=== PATIENT | female | born 1955 | race Caucasian/White ===

== ENCOUNTER 2019-04-21 03:13 | Inpatient (IN) ==
[2019-04-21] MEDS ORDERED: SODIUM CHLORIDE 0.9% 1000ML 1,000 ML IV ONE (03:34)
[2019-04-21] MEDS ORDERED: ALBUT/IPRATROP 3MG/0.5MG NEB 3 ML VIAL NEB STA (03:35)
[2019-04-21] MEDS ORDERED: methylPREDNISolone 125 MG/2 ML VIAL IV STA (03:35)
[2019-04-21 03:59] LABS: Basophils # (auto) 0.02 K/uL (0-0.2); Basophils % (auto) 0.1 %; Eosinophils # (auto) 0.09 K/uL (0-0.5); Eosinophils % (auto) 0.7 %; Hematocrit (blood only) 32.3 % (37-47); Hemoglobin 9.7 g/dL (12.0-16.0); Immature Granulocytes # (auto) 0.02 K/uL (0.00-0.02); Immature Granulocytes % (auto) 0.1 %; Lymphocytes # (auto) 0.85 K/uL (1.2-3.4); Lymphocytes % (auto) 6.3 %; Mean Corpuscular Hemoglobin 25.7 pg (25-34); Mean Corpuscular Volume 85.4 fL (80-100); Mean Platelet Volume 11.7 fL (7.4-10.4); Monocytes # (auto) 1.08 K/uL (0.11-0.59); Neutrophils # (auto) 11.46 K/uL (1.4-6.5); Neutrophils % (auto) 84.8 %; Platelet Count 224 K/uL (130-400); RDW Coefficient of Variation 17.6 % (11.5-14.5); Red Blood Count 3.78 M/uL (4.2-5.4); White Blood Count 13.52 K/uL (4.8-10.8)
[2019-04-21 04:10] LABS: INR 1.1 (0.9-1.1); Partial Thromboplastin Ratio 0.9; Partial Thromboplastin Time 24.4 Seconds (21.0-31.0); Prothrombin Time 10.9 Seconds (9.0-12.0)
[2019-04-21 04:25] LABS: Alanine Aminotransferase 28 U/L (12-78); Albumin Level 3.7 gm/dl (3.4-5.0); Aspartate Aminotransferase 28 U/L (15-37); BUN Creatinine Ratio 16.1 (10-20); Bilirubin,Total 0.4 mg/dl (0.2-1); Blood Urea Nitrogen 27 mg/dl (7-18); Calcium 8.6 mg/dl (8.5-10.1); Carbon Dioxide 24 mmol/L (21-32); Chloride 104 mmol/L (98-107); Est GFR (African American) 36.8; Est GFR (Non-African American) 31.8; Globulin 3.8 gm/dl (2.5-4.0); Glucose 142 mg/dl (70-99); Magnesium 1.8 mg/dl (1.8-2.4); Potassium 3.8 mmol/L (3.5-5.1); Sodium 138 mmol/L (136-145); Total Protein 7.5 gm/dl (6.4-8.2)
[2019-04-21 04:30] LABS: Alkaline Phosphatase 62 U/L (45-117); NT Pro B Type Natriuretic Pept 59 pg/ml (0-900); Troponin I < 0.015 ng/ml (0-0.045)
[2019-04-21] MEDS ORDERED: ALBUT/IPRATROP 3MG/0.5MG NEB 3 ML VIAL NEB ONE (04:41)
[2019-04-21] MEDS ORDERED: cefTRIAXone SODIUM 2,000 MG/70 ML BAG IV STA (04:43)
[2019-04-21] MEDS ORDERED: DOXYCYCLINE HYCLATE 100 MG in DEXTROSE 5% 100 ML IV STA (04:43)
--- NOTE | 2019-04-21 04:59 | Emergency Department Note ---
History of Present Illness General Chief Complaint: Respiratory Problems Stated Complaint: HARD TO BREATHE Source: patient Mode of arrival: ambulatory Limitations: no limitations History of Present Illness Provider Complaint: shortness of breath, cough and pain with inspiration Onset (ago): day(s) (3) Severity: severe Consistency/Duration: + constant Maximum Pain Intensity: 7 Current Pain Intensity: 7 Relieved By: + upright position Exacerbated By: + exertion, + coughing and + inspiration Known history of: asthma and recurrent pneumonia Associated symptoms: + chest pain, + pain with inspiration, + cough, + wheezing, + sputum production, + orthopnea and + chest congestion Treatment prior to arrival: bronchodilator This 63-year-old female patient presents emergency department today, ambulatory, accompanied by male. The patient is complaining of cough, difficulty breathing, and burning in her chest, particularly with inspiration. She states "I think I have pneumonia". The patient states she reports history of similar symptoms associated with pneumonia. She did develop her symptoms 3 days ago, and they have been progressively worsening. They were initially associated with congestion, sore throat, rhinorrhea, subjective fever, and otalgia. The patient has been using her Advair and albuterol without relief of her symptoms. She denies any hemoptysis, abdominal pain, nausea, vomiting, diarrhea, constipation. Related Data Home oxygen amount: none Home Medications Home Medications Medication Instructions Recorded Confirmed Type brexpiprazole [Rexulti] 1 mg PO DAILY 04/21/19 04/21/19 History carbidopa-levodopa 1 tab PO DIRECTED 04/21/19 04/21/19 History gabapentin 300 mg PO TID PRN 04/21/19 04/21/19 History lorazepam [Ativan] 1 mg PO DAILY PRN 04/21/19 04/21/19 History oxycodone-acetaminophen [Percocet] 1 tab PO TID PRN 04/21/19 04/21/19 History trandolapril-verapamil [Tarka] 1 tab PO DAILY 04/21/19 04/21/19 History Allergies Allergy/AdvReac Type Severity Reaction Status Date / Time No Known Allergies Allergy Verified 04/21/19 03:58 Past Med/Surg History Medical History Asthma Fibromyalgia Hypertension Surgical History H/O tubal ligation History of cholecystectomy Social History Feels Safe at Home: Yes Smoking Status: Never smoker Review of Systems A total of 10 systems reviewed and were otherwise negative Physical Exam Vital Signs: Vital Signs - 24 hr 04/21/19 03:18 04/21/19 03:27 04/21/19 03:30 Temperature 36.7 C Temperature Source Oral Sepsis Recent Feve r Within 48 Hours No Sepsis New/Unexpla ined Change in Men mathew Status No Sepsis Action Take n by Nursing No Action Required Oxygen Flow Rate - Titration 3 Pulse Oximetry Pos t Tiitration 93 Pulse Rate 121 H Pulse Rate [Right Finger] Respiratory Rate 20 Respiratory Effort / Characteristics Non-Labored Sponta neous Respiratory Depth Normal Blood Pressure 102/59 L Blood Pressure [Le ft Arm] Blood Pressure Yarely n 73 Blood Pressure Yarely n [Left Arm] Pulse Oximetry 88 L 85 L 94 Oxygen Delivery Me thod Room Air Nasal Cannula Nasal Cannula Oxygen Flow Rate 0 04/21/19 03:55 04/21/19 04:09 Temperature Temperature Source Sepsis Recent Feve r Within 48 Hours Sepsis New/Unexpla ined Change in Men mathew Status Sepsis Action Take n by Nursing Oxygen Flow Rate - Titration Pulse Oximetry Pos t Tiitration Pulse Rate Pulse Rate [Right Finger] 97 H 98 H Respiratory Rate 21 26 H Respiratory Effort / Characteristics Non-Labored Respiratory Depth Blood Pressure Blood Pressure [Le ft Arm] 110/96 Blood Pressure Yarely n Blood Pressure Yarely n [Left Arm] 100 Pulse Oximetry 92 92 Oxygen Delivery Me thod Nasal Cannula Nasal Cannula Oxygen Flow Rate 3 3 Physical Exam: VITALS: Vitals are noted on the nurse's note and reviewed by myself. Vital signs stable. GENERAL: This is a 63-year-old female, obviously dyspneic, tripoding, nondiaphoretic, well-developed well-nourished. SKIN: The skin was without rashes, erythema, edema, or bruising. There is no tenting of the skin. Capillary refill less than 2 seconds. HEAD: Normocephalic atraumatic. EARS: External auditory canals clear, tympanic membranes pearly benavidez without erythema or effusion bilaterally. EYES: Pupils equal round and reactive to light and accommodation. Conjunctivae without injection, sclerae without icterus. Extraocular movements intact. NOSE: Patent, turbinates without inflammation or discharge. No sinus tenderness. MOUTH: Mucous membranes moist. Tonsils are not enlarged. Pharynx without erythema or exudate. Uvula midline. Airway patent. Tongue does not deviate. NECK: Supple without nuchal rigidity. No lymphadenopathy. HEART: Regular rate and rhythm without murmurs gallops or rubs. LUNGS: Diffuse expiratory wheezing throughout. The patient is using accessory muscles. ABDOMEN: Positive bowel sounds x 4. Normal tympanic percussion. Soft, nontender, without masses or organomegaly. No guarding or rebound tenderness. MUSCULOSKELETAL: No muscle atrophy, erythema, or edema noted. Full range of motion without joint tenderness in all extremities. No tenderness to palpation. Normal gait. Strength 5/5 throughout. NEURO: Patient was alert and oriented to person place and time. Normal sensation to light and sharp touch. No focal neurological deficits. Course The patient was seen and evaluated as above. IV access obtained, labs drawn. Patient medicated with IV Solu-Medrol, IV fluids, and DuoNeb treatment. Imaging performed and reviewed by myself and radiologist as above. Labs reviewed by myself. I discussed the findings with the patient at bedside. She was reassessed. She was taken off of the oxygen and O2 sat dropped again to 86% within 3 minutes at rest. Patient given hour-long DuoNeb, Rocephin, doxycycline. I discussed the case with my attending. I discussed the case with social work case manager. I discussed the case with Dr. Jones, [facility] physician. He agrees to see and evaluate the patient for admission. Administered Medications Discontinued Medications Albuterol (Duoneb) 3 ml NEB NOW STA Stop: 04/21/19 03:36 Last Admin: 04/21/19 03:52 Dose: 3 ml Documented by: [id number] Sodium Chloride (Nss 1000ml) 1,000 mls @ 999 mls/hr IV .Q1H1M ONE Stop: 04/21/19 04:34 Last Admin: 04/21/19 04:02 Dose: 999 mls/hr Documented by: [id number] Methylprednisolone (Solumedrol) 125 mg IV NOW STA Stop: 04/21/19 03:36 Last Admin: 04/21/19 04:02 Dose: 125 mg Documented by: [id number] Medical Decision Making Differential Diagnosis + acute exacerbation of chronic obstructive airways disease, + congestive heart failure, + community acquired pneumonia, + asthma with exacerbation, + pulmonary embolism, + COPD, + bronchitis, + pneumothorax, + pneumonia, + pleural effusion, + CHF, + ACS and + aspiration Home Medications Current Medication List: was personally reviewed by me Laboratory Data Attestation: I reviewed the patient's lab results. Leukocytosis with a white count of 13,000. Anemia with hemoglobin of 9.7 and hematocrit 32.3. The patient states this is chronic and she is supposed to be taking iron supplements, but discontinued them herself several months ago. Coags normal. Troponin negative. BNP 59. Negative influenza testing. Renal, hepatic function, and electrolytes without significant abnormality. Result diagrams: 04/21/19 03:51 04/21/19 03:51 Lab Results 04/21/19 04/21/19 04/21/19 Range/Units 03:51 03:51 03:51 WBC 13.52 H (4.8-10.8) K/uL RBC 3.78 L (4.2-5.4) M/uL Hgb 9.7 L (12.0-16.0) g/dL Hct 32.3 L (37-47) % MCV 85.4 (80-100) fL MCH 25.7 (25-34) pg MCHC 30.0 L (32-36) g/dL RDW Std Deviation 55.0 H (36.4-46.3) fL RDW Coeff of Grant 17.6 H (11.5-14.5) % Plt Count 224 (130-400) K/uL MPV 11.7 H (7.4-10.4) fL Immature Gran % (Auto) 0.1 % Neut % (Auto) 84.8 % Lymph % (Auto) 6.3 % [place] % (Auto) 8.0 % Eos % (Auto) 0.7 % Baso % (Auto) 0.1 % Immature Gran # (Auto) 0.02 (0.00-0.02) K/uL Neut # (Auto) 11.46 H (1.4-6.5) K/uL Lymph # (Auto) 0.85 L (1.2-3.4) K/uL [place] # (Auto) 1.08 H (0.11-0.59) K/uL Eos # (Auto) 0.09 (0-0.5) K/uL Baso # (Auto) 0.02 (0-0.2) K/uL PT 10.9 (9.0-12.0) Seconds INR 1.1 (0.9-1.1) APTT 24.4 (21.0-31.0) Seconds PTT Ratio 0.9 Sodium 138 (136-145) mmol/L Potassium 3.8 (3.5-5.1) mmol/L Chloride 104 (98-107) mmol/L Carbon Dioxide 24 (21-32) mmol/L Anion Gap 10.0 (3-11) BUN 27 H (7-18) mg/dl Creatinine 1.67 H (0.6-1.2) mg/dl Est Cr Clr Drug Dosing 35.0 ml/min Est GFR ( Amer) 36.8 Est GFR (Non-Af Amer) 31.8 BUN/Creatinine Ratio 16.1 (10-20) Glucose 142 H (70-99) mg/dl Calcium 8.6 (8.5-10.1) mg/dl Magnesium 1.8 (1.8-2.4) mg/dl Total Bilirubin 0.4 (0.2-1) mg/dl AST 28 (15-37) U/L ALT 28 (12-78) U/L Alkaline Phosphatase 62 (45-117) U/L Troponin I < 0.015 (0-0.045) ng/ml NT-Pro-B Natriuret Pep 59 (0-900) pg/ml Total Protein 7.5 (6.4-8.2) gm/dl Albumin 3.7 (3.4-5.0) gm/dl Globulin 3.8 (2.5-4.0) gm/dl Albumin/Globulin Ratio 1.0 (0.9-2) Influenza Type A Ag (Neg) Influenza Type B Ag (Neg) 04/21/19 Range/Units 03:51 WBC (4.8-10.8) K/uL RBC (4.2-5.4) M/uL Hgb (12.0-16.0) g/dL Hct (37-47) % MCV (80-100) fL MCH (25-34) pg MCHC (32-36) g/dL RDW Std Deviation (36.4-46.3) fL RDW Coeff of Grant (11.5-14.5) % Plt Count (130-400) K/uL MPV (7.4-10.4) fL Immature Gran % (Auto) % Neut % (Auto) % Lymph % (Auto) % [place] % (Auto) % Eos % (Auto) % Baso % (Auto) % Immature Gran # (Auto) (0.00-0.02) K/uL Neut # (Auto) (1.4-6.5) K/uL Lymph # (Auto) (1.2-3.4) K/uL [place] # (Auto) (0.11-0.59) K/uL Eos # (Auto) (0-0.5) K/uL Baso # (Auto) (0-0.2) K/uL PT (9.0-12.0) Seconds INR (0.9-1.1) APTT (21.0-31.0) Seconds PTT Ratio Sodium (136-145) mmol/L Potassium (3.5-5.1) mmol/L Chloride (98-107) mmol/L Carbon Dioxide (21-32) mmol/L Anion Gap (3-11) BUN (7-18) mg/dl Creatinine (0.6-1.2) mg/dl Est Cr Clr Drug Dosing ml/min Est GFR ( Amer) Est GFR (Non-Af Amer) BUN/Creatinine Ratio (10-20) Glucose (70-99) mg/dl Calcium (8.5-10.1) mg/dl Magnesium (1.8-2.4) mg/dl Total Bilirubin (0.2-1) mg/dl AST (15-37) U/L ALT (12-78) U/L Alkaline Phosphatase (45-117) U/L Troponin I (0-0.045) ng/ml NT-Pro-B Natriuret Pep (0-900) pg/ml Total Protein (6.4-8.2) gm/dl Albumin (3.4-5.0) gm/dl Globulin (2.5-4.0) gm/dl Albumin/Globulin Ratio (0.9-2) Influenza Type A Ag Neg for Influ A (Neg) Influenza Type B Ag Neg for Influ B (Neg) Imaging Data My Impression: Chest x-ray interpreted by me. Findings: A chest x-ray was performed and revealed a right lower lobe infiltrate. No pneumothorax, effusion, pulmonary edema, free air under the diaphragm, or wide mediastinum. ECG Data Attestation: I personally reviewed and interpreted this ECG as follows: Prior ECG tracings: not available for review Interpretation: Sinus tachycardia with a ventricular rate of 105 bpm. No acute ischemic changes. No ST elevation. No T wave inversion. Blood Pressure Blood Pressure Findings: Normal blood pressure MDM Narrative This 63-year-old female patient presents emergency department today for evaluation of dyspnea and cough. Work-up here in the ED is consistent with pneumonia. The patient was hypoxic on room air and unable to maintain O2 saturation greater than 90% on room air after a DuoNeb treatment and Solu- Medrol. Due to the patient's history of asthma as well as the hypoxia, I do feel that the patient will benefit from inpatient management of her symptoms. She was medicated while here in the ED with repeat DuoNeb treatments, steroids, and antibiotics. Please see hospitalist dictation regarding ongoing management care of this patient. The chart was completed utilizing [employer] voice recognition software. Grammatical errors, random word insertions, pronoun errors, and incomplete sentences are an occasional consequence of this system due to software limitations, ambient noise, and hardware issues. Any formal questions or concerns about the content, text, or information contained within the body of this dictation should be directly addressed to the provider for clarification. Impression & Plan Community acquired pneumonia, Hypoxia, Chest pain Discharge Plan Visit Data Chief Complaint: Respiratory Problems Stated Complaint: HARD TO BREATHE ED Provider: Magda Beltran ED Midlevel Provider: Abida Bowens Discharge Problem: Community acquired pneumonia, Hypoxia, Chest pain Patient Disposition: Admitted As Inpatient Forms Stand Alone Forms: My [facility] [address] Prescriptions Prescriptions: No Action oxycodone-acetaminophen [Percocet] 10-325 mg Tablet 1 tab PO TID PRN (Reason: Pain) RF: 0 gabapentin 300 mg Capsule 300 mg PO TID PRN (Reason: Pain) RF: 0 lorazepam [Ativan] 1 mg Tablet 1 mg PO DAILY PRN (Reason: Anxiety) RF: 0 Rexulti 1 mg Tablet 1 mg PO DAILY RF: 0 carbidopa-levodopa 25-100 mg Tablet 1 tab PO DIRECTED RF: 0 trandolapril-verapamil [Tarka] 2-240 mg Tablet, Ir - Er, Biphasic 24hr 1 tab PO DAILY RF: 0 Referrals Referrals: PCP,NO [Primary Care Provider] -
[2019-04-21] MEDS: MAGNESIUM SULFATE / D5W 1 GM/100 ML BAG IV SCH ×2 (05:31→06:33)
[2019-04-21 05:53] LABS: Estimated Average Glucose 143 mg/dl; Hemoglobin A1C 6.6 % (4.5-5.6)
--- NOTE | 2019-04-21 06:19 | History & Physical Report ---
Date of Service April 21, 2019 Assessment & Plan (1) Acute hypoxemic respiratory failure: Secondary to severe persistent asthma exacerbation secondary to complicated bronchitis/URTI Uncontrolled GERD contributory to suboptimal bronchial asthma control Possible sepsis Rule out influenza hypertension, slight elevated ARF secondary to illness, patient denies knowledge of kidney issues in the past Hyperglycemia, new diagnosis of DM, hemoglobin A1c noted to be 6.6 Parkinson's disease on meds, at baseline disability Fibromyalgia as per records anxiety disorder at baseline Medical telemetry Supplemental O2 Baseline ABG Cultures, check lactic acid Check flu PCR Doxycycline, nebs, prednisone course IV magnesium for added bronchodilator effect for asthma flareup. Pulmonology consult RE respiratory failure, asthma exacerbation baseline UA, monitor creatinine sponsor IV fluids, hold home BROCK inhibitor until creatinine at baseline Basal insulin, ISS BG goal 140- 180, carb count coverage, DM education PT OT eval DVT prophylaxis. Heparin subcu Full code Attempted to update patient's daughter, Gini (contact number [phone]), over the phone regarding plan of care. No answer. History of Present Illness Primary Care Provider: Dr. Yonatan Vega from [place], [place] History obtained from patient and records. Medical history significant for bronchial asthma, hypertension, Parkinson's disease, GERD, fibromyalgia, anxiety disorder. Patient is a resident of [place], [place] who has been in town the last 2 days to visit her daughter who lives in [place], [place]. Patient has had bronchial asthma since she was in her teens. Daily inhaler/nebulizer use for some time now. Asthma attacks precipitated by change in weather as per patient. No known exposure to secondhand smoke. History of intubation for asthma/pneumonia about 2 years ago at a hospital in [place]. Yesterday, patient noted worsening reflux symptoms followed by colds , congestion, sore throat, cough symptoms productive of junky sputum. Worsening shortness of breath and wheezing as per patient. No chest pain. No aspiration. No fever, no chills. At the ER, patient noted to be hypoxemic, Patient given IV Solu-Medrol, neb treatment, Ceftriaxone and Doxycycline for asthmatic bronchitis. Medical History as above Surgical History : BTL, cholecystectomy Family History : Asthma, Parkinson's disease Personal/Social history : Non-smoker, no EtOH intake, retired store employee Allergies Allergy/AdvReac Type Severity Reaction Status Date / Time No Known Allergies Allergy Verified 04/21/19 03:58 Home Medications Home Medications Medication Instructions Recorded Confirmed Type brexpiprazole [Rexulti] 1 mg PO DAILY 04/21/19 04/21/19 History carbidopa-levodopa 1 tab PO DIRECTED 04/21/19 04/21/19 History gabapentin 300 mg PO TID PRN 04/21/19 04/21/19 History lorazepam [Ativan] 1 mg PO DAILY PRN 04/21/19 04/21/19 History oxycodone-acetaminophen [Percocet] 1 tab PO TID PRN 04/21/19 04/21/19 History trandolapril-verapamil [Tarka] 1 tab PO DAILY 04/21/19 04/21/19 History Past Med/Surg History Medical History Asthma Fibromyalgia Hypertension Surgical History H/O tubal ligation History of cholecystectomy Social History Preferred Language: Nauruan Communication Ability: Effective Paraprofessional Education Assistant Required: No Beliefs That Will Affect Care: None Current Living Situation: Spouse Other Information That Helps Us Care for You: No Feels Safe at Home: Yes Safety Concerns: Feels Safe At This Time Smoking Status: Never smoker Do You Dip or Chew Tobacco: No ; Second Hand Exposure: No ; Tobacco Cessation Education Requested by Patient: No Hx Alcohol Use: No Hx Substance Use: No Review of Systems Review of Systems: As per HPI, all 10 systems reviewed, all other ROS negative Physical Exam Physical Exam: GENERAL: Wane, obese, flat affect, currently having a breathing treatment comfortable SKIN: Pallor , warm HEENT: Pale palpebral conjunctivae, no ptosis, dry buccal mucosa: O2 mask in place NECK : Supple, short neck, no tenderness CHEST : Decreased breath sounds, bilateral expiratory wheezes, no tenderness HEART : Tachycardic , no obvious murmurs ABDOMEN: Some distention, nontender RECTAL : Intact sphincter, yellow stool (FOBT negative) EXTREMITIES : Minimal LE swelling, no LE tenderness, no other conspicuous deformities noted NEUROLOGIC : Coherent, no facial asymmetry, tremulous (from breathing treatment as per patient), no other gross focality Results & Data Vital Signs (Past 12 Hours) Vital Signs Temp Pulse Pulse Resp BP BP Pulse Ox 04/21/19 05:01 95 H 18 141/83 H 100 04/21/19 04:57 99 H 19 94 04/21/19 04:32 93 H 18 114/50 L 92 04/21/19 04:09 98 H 26 H 110/96 92 04/21/19 04:07 98 H 18 110/96 93 04/21/19 03:55 97 H 21 92 04/21/19 03:30 94 04/21/19 03:27 85 L 04/21/19 03:18 36.7 C 121 H 20 102/59 L 88 L Laboratory Results Laboratory Results WBC 13.52 K/uL (4.8-10.8) H 04/21/19 03:51 RBC 3.78 M/uL (4.2-5.4) L 04/21/19 03:51 Hgb 9.7 g/dL (12.0-16.0) L 04/21/19 03:51 Hct 32.3 % (37-47) L 04/21/19 03:51 MCV 85.4 fL (80-100) 04/21/19 03:51 MCH 25.7 pg (25-34) 04/21/19 03:51 MCHC 30.0 g/dL (32-36) L 04/21/19 03:51 RDW Std Deviation 55.0 fL (36.4-46.3) H 04/21/19 03:51 RDW Coeff of Grant 17.6 % (11.5-14.5) H 04/21/19 03:51 Plt Count 224 K/uL (130-400) 04/21/19 03:51 MPV 11.7 fL (7.4-10.4) H 04/21/19 03:51 Immature Gran % (Auto) 0.1 % 04/21/19 03:51 Neut % (Auto) 84.8 % 04/21/19 03:51 Lymph % (Auto) 6.3 % 04/21/19 03:51 Real % (Auto) 8.0 % 04/21/19 03:51 Eos % (Auto) 0.7 % 04/21/19 03:51 Baso % (Auto) 0.1 % 04/21/19 03:51 Immature Gran # (Auto) 0.02 K/uL (0.00-0.02) 04/21/19 03:51 Neut # (Auto) 11.46 K/uL (1.4-6.5) H 04/21/19 03:51 Lymph # (Auto) 0.85 K/uL (1.2-3.4) L 04/21/19 03:51 Real # (Auto) 1.08 K/uL (0.11-0.59) H 04/21/19 03:51 Eos # (Auto) 0.09 K/uL (0-0.5) 04/21/19 03:51 Baso # (Auto) 0.02 K/uL (0-0.2) 04/21/19 03:51 PT 10.9 Seconds (9.0-12.0) 04/21/19 03:51 INR 1.1 (0.9-1.1) 04/21/19 03:51 APTT 24.4 Seconds (21.0-31.0) 04/21/19 03:51 PTT Ratio 0.9 04/21/19 03:51 Sodium 138 mmol/L (136-145) 04/21/19 03:51 Potassium 3.8 mmol/L (3.5-5.1) 04/21/19 03:51 Chloride 104 mmol/L (98-107) 04/21/19 03:51 Carbon Dioxide 24 mmol/L (21-32) 04/21/19 03:51 Anion Gap 10.0 (3-11) 04/21/19 03:51 BUN 27 mg/dl (7-18) H 04/21/19 03:51 Creatinine 1.67 mg/dl (0.6-1.2) H 04/21/19 03:51 Est Cr Clr Drug Dosing 35.0 ml/min 04/21/19 03:51 Est GFR ( Amer) 36.8 04/21/19 03:51 Est GFR (Non-Af Amer) 31.8 04/21/19 03:51 BUN/Creatinine Ratio 16.1 (10-20) 04/21/19 03:51 Glucose 142 mg/dl (70-99) H 04/21/19 03:51 Estimat Average Glucose 143 mg/dl 04/21/19 03:51 Hemoglobin A1c 6.6 % (4.5-5.6) H 04/21/19 03:51 Calcium 8.6 mg/dl (8.5-10.1) 04/21/19 03:51 Magnesium 1.8 mg/dl (1.8-2.4) 04/21/19 03:51 Total Bilirubin 0.4 mg/dl (0.2-1) 04/21/19 03:51 AST 28 U/L (15-37) 04/21/19 03:51 ALT 28 U/L (12-78) 04/21/19 03:51 Alkaline Phosphatase 62 U/L (45-117) 04/21/19 03:51 Troponin I < 0.015 ng/ml (0-0.045) 04/21/19 03:51 NT-Pro-B Natriuret Pep 59 pg/ml (0-900) 04/21/19 03:51 Total Protein 7.5 gm/dl (6.4-8.2) 04/21/19 03:51 Albumin 3.7 gm/dl (3.4-5.0) 04/21/19 03:51 Globulin 3.8 gm/dl (2.5-4.0) 04/21/19 03:51 Albumin/Globulin Ratio 1.0 (0.9-2) 04/21/19 03:51 Influenza Type A Ag Neg for Influ A (Neg) 04/21/19 03:51 Influenza Type B Ag Neg for Influ B (Neg) 04/21/19 03:51 Diagnostic Findings Chest x-ray as per my interpretation atelectasis, elevated right hemidiaphragm EKG as per my interpretation : Rate 105, sinus tachycardia, LAD, LAFB, T wave flattening lateral leads
[2019-04-21] MEDS ORDERED: PANTOprazole 40 MG TAB PO STA (06:21)
[2019-04-21] MEDS ORDERED: INSULIN GLARGINE SOLOSTAR 100 UNITS/ML 3 ML PEN SC STA (06:27)
[2019-04-21 07:16] LABS: Base Excess ABG -2.3 mEq/L (-9-1.8); HCO3 ABG 24 mmol/L (19-24); Oxygen Saturation ABG 88.7 % (90-95); PCO2 ABG 49 mmHg (35-46); PO2 ABG 63 mm/Hg (80-95); pH ABG 7.31 (7.35-7.45)
[2019-04-21] MEDS ORDERED: GLUCAGON FOR INJ 1 MG VIAL SQ PRN (07:16)
[2019-04-21] MEDS ORDERED: NORMOSOL-R 1,000 ML IV STA (07:16)
[2019-04-21] MEDS ORDERED: DEXTROSE 50% 50 ML SYRINGE IV PRN (07:16)
[2019-04-21] MEDS ORDERED: GLUCOSE 40% GEL 15 GM TUBE PO PRN (07:16)
[2019-04-21] MEDS ORDERED: POTASSIUM CHLORIDE 20 MEQ TABCR PO STA (07:16)
[2019-04-21] MEDS ORDERED: PROMETHAZINE HCL 12.5 MG in SODIUM CHLORIDE 0.9% 50 ML IV PRN (07:16)
[2019-04-21] MEDS ORDERED: ACETAMINOPHEN 325 MG TAB PO PRN (07:16)
[2019-04-21] MEDS ORDERED: CARBOHYDRATES FOR HYPOGLYCEMIA PO PRN (07:16)
[2019-04-21] MEDS ORDERED: GLUCOSE 10 TABS/TUBE PO PRN (07:16)
[2019-04-21 07:24] LABS: Allen Test Pos (Pos)
--- NOTE | 2019-04-21 07:31 | XRay Report ---
XR chest 2V PA/lateral HISTORY: cough COMPARISON: None. FINDINGS: Small linear density at the left lung base favor scarring or subsegmental atelectasis. Othe rwise, the lungs are clear. The heart is normal in size. No pleural effusions. No pneumothorax. Small hiatus hernia with a mildly distended esophagus and a column of fluid within the distal esophagus. M ild anterior wedging within the mid thoracic spine vertebral body is likely old. Postoperative change s within the proximal left humerus. IMPRESSION: 1. Small hiatus hernia with a mildly distended esophagus and a column of fluid within the distal esop hagus. This could be due to esophageal dysmotility, gastroesophageal reflux disease, or possibly stri cture/narrowing of the distal esophagus. Endoscopy and/or upper GI series is recommended for further evaluation. 2. Linear density at the left lung base suggestive of subsegmental atelectasis. Electronically signed by: Felipe Owen M.D. 04/21/2019 7:30 AM
[2019-04-21 07:56] LABS: Hematocrit (blood only) 30.4 % (37-47); Hemoglobin 9.5 g/dL (12.0-16.0); Reticulocyte % 1.4 % (0.5-2.0); Reticulocytes # 0.05 10^6/uL (0.02-0.10)
[2019-04-21 07:58] LABS: HCO3 ABG 22 mmol/L (19-24); Oxygen Saturation ABG 94.3 % (90-95); PCO2 ABG 47 mmHg (35-46); PO2 ABG 82 mm/Hg (80-95)
[2019-04-21] MEDS ORDERED: XOPENEX/ATROVENT 1.25mg/0.5MG NEB COMBO NEB SCH (08:00)
[2019-04-21 08:10] LABS: Iron 33 mcg/dl (35-150); Total Iron Binding Capacity 378 mcg/dl (250-450); Transferrin 294 mg/dl (200-360)
[2019-04-21] MEDS: IPRATROPIUM BROMIDE NEB SOLN 0.02% 2.5 ML VIAL INH SCH ×5 (08:21→23:04)
[2019-04-21] MEDS: LEVALBUTEROL 1.25MG/0.5ML NEB INH SCH ×5 (08:21→23:04)
[2019-04-21 08:23] LABS: Allen Test Pos (Pos)
[2019-04-21] MEDS: VERAPAMIL HCL 240 MG TABCR PO SCH (08:30)
[2019-04-21] MEDS: guaiFENesin 600 MG TABCR PO SCH ×2 (08:30→21:04)
[2019-04-21] MEDS: CARBIDOPA/LEVODOPA 25/100MG TAB PO SCH ×3 (08:30→21:05)
[2019-04-21] MEDS: INSULIN ASPART 100 UNITS/ML 3 ML PEN SC SCH ×4 (08:37→21:12)
--- NOTE | 2019-04-21 10:04 | CT Scan Report ---
CT chest wo con CT DOSE: 570.67 mGy.cm HISTORY: Dyspnea worsening SOB TECHNIQUE: Multiaxial CT images of the chest were performed without contrast. A dose lowering techni que was utilized adhering to the principles of ALARA. COMPARISON: None. FINDINGS: Lungs are considered clear. There are findings of minimal scattered bibasilar atelectatic c hange. Mild emphysematous change is present. There are no focal infiltrative changes. There is no significant nodular pathology. There is no significant hilar or mediastinal adenopathy. There is moderate air-filled as well as fluid-filled esophageal dilatation. This is associated with a small hiatal hernia and potentially is secondary to reflux. Diffuse fatty replacement of liver. Small amount of air within the biliary ductal system presumably p ostoperative and/or related to prior sphincterotomy or cholecystectomy although that information is n ot provided. IMPRESSION: 1. Mild emphysematous change. 2. No focal infiltrative process. 3. Fatty replacement of the liver with air within the biliary ductal system presumably on a postopera tive basis. 4. Air and fluid-filled filled mild esophageal distention associated with hiatal hernia. 5. This appearance is suggestive of gastroesophageal reflux. The above report was generated using voice recognition software. It may contain grammatical, syntax or spelling errors. Electronically signed by: Allen Ruby M.D. 04/21/2019 10:02 AM
[2019-04-21] MEDS: methylPREDNISolone 40 MG in SYRINGE 0 ML IV SCH ×2 (11:19→17:55)
[2019-04-21 11:44] LABS: Influenza A virus by PCR Neg for Influ A (Neg); Influenza B virus by PCR Neg for Influ B (Neg)
[2019-04-21] MEDS ORDERED: CALCIUM CARBONATE 500 MG CHEWABLE TAB PO STA (12:16)
[2019-04-21] MEDS: HEPARIN SOD 5,000 UNIT/0.5 ML VIAL SQ SCH ×2 (13:02→21:12)
--- NOTE | 2019-04-21 14:32 | Communication Note ---
Date of Service: April 21, 2019 Pt was seen and examined Sitting in chair with acute respiratory distress Pt said that she is having a hard time to breath She said that she has been coughing, but unable to bring any phlegm Denies any chest pain, dizziness and fever General- No acute distress Head- atraumatic Eyes- PERRL, EOMI, ENT- oropharynx clear Neck- supple, no JVD Lungs- +Wheezing all over Heart- regular rhythm; no murmur Abdomen- normal bowel sounds, soft, nontender Extremities- no calf tenderness Neuro- alert, oriented x 3; PERRL, EOMI; no facial palsy; no dysarthria Skin- warm & dry A/P Acute hypoxemic respiratory failure Secondary to severe persistent asthma exacerbation secondary to complicated bronchitis CXR showed linear density at the left lung base suggestive of subsegmental atelectasis. CT chest showed Mild emphysematous change. No focal infiltrative process. ABG this morning 7.30/47/82/22 Continue IV Solumedrol 40mg IV q8h, neb treatment and oxygen supplement Received IV Rocephin and Doxycycline in the ER Pulm on board ( case discussed with pulm team) Not on any Asthma maintenance med Unable to get a CT with PE protocol due to elevated creatinine Will get an doppler U/S of the b/l LE extremities Will d/c abx Continue monitor closely GERD Seems to cause asthma symptoms worst CT showed showed air and fluid-filled filled mild esophageal distention associated with hiatal hernia. This appearance is suggestive of gastroesophageal reflux. Started on PPI BID Will consult GI CKD stabe 3 Creatinine on admission 1.6 (unknown baseline) Will avoid nephrotoxic agents Monitor BMP Newly Diagnosed DM Hba1c 6.6 BS has been elevated due to steroid on lantus and novolog sliding scale clinical unit educator consult Continue monitor BS Anxiety Will add low dose Ativan PRN HTN BP stable Continue home BP med CODE STATUS FULL CODE Disposition Will discharge home once medically stable
--- NOTE | 2019-04-21 15:03 | Pulmonary Consultation ---
Date of Consultation April 21, 2019 Assessment & Plan (1) Acute hypoxemic respiratory failure: Patient does have an acute hypercapnic respiratory failure and an acute hypoxemic respiratory failure. Doing IV Solu-Medrol today and transitioning to p.o. prednisone tomorrow. I will give her a 7-day course of p.o. 40 mg prednisone without a taper.I suspect that this is likely due to an underlying airways disease such as possible asthma. Interestingly she does have some very mild emphysema noted on her CT scan.She does not appear to be acutely infected and I would discontinue antibiotics at this time.She does seem to have significant sinus issues and I recommend that she be on nasal saline sprays, Astelin nasal spray and Flonase.I am also concerned of a possible pulmonary embolism given her normal parenchymal findings on her CT chest. Will order for VQ scan today.She does have hypercapnic respiratory failure and I would recommend a BiPAP at night while sleeping. She should undergo a sleep study as an outpatient. She should undergo pulmonary function tests as an outpatient as well. Additionally, she has a severely dilated esophagus likely related to her underlying Parkinson's disease and I would recommend a gastroenterology consultation for possible EGD or Botox injections as this is likely contributing to her underlying airways disease with possible laryngeal-pharyngeal reflux.Continue Protonix 40 mg twice daily. We will continue to follow along with you. Thank you for the consult. (2) Chest tightness: (3) Esophageal dilatation: (4) Active asthma: (5) Gastric reflux: (6) Acute hypercapnic respiratory failure: History of Present Illness Reason for Consultation: Shortness of breath and respiratory failure Attending Physician: Trung Harvey MD History of Present Illness This is a 72-year-old female with a past medical history of hypertension, GERD, arthritis, disease who presented to the hospital with increasing shortness of breath, sore throat and cough. Patient notes that she woke up last night with severe reflux and shortness of breath. She is here visiting from [place]. She is visiting her daughter. She says that over the last month and a half she has had increasing cough that is dry in nature. She is also has some chest tightness and nasal congestion. She has chronic headaches related to sinus congestion. She does endorse shortness of breath with walking a few steps. Prior to about 2 months ago she was able to ambulate without issue. She is not on home oxygen. She is currently requiring supplemental oxygen here in the hospital. She is saturating 98% on 5 L of supplemental nasal cannula.She denies any significant fevers. She has had some mild sweats. She denies any drenching night sweats. She does endorse a weight gain. She notes that last year she was hospitalized in [facility] with significant pneumonia due to "silent aspiration". She says she was intubated for very long time and almost during that hospitalization.She notes that she has a history of asthma that was diagnosed with in the past year. She denies any history of asthma or respiratory issues when she was younger. She has no history of smoking. She lives with her in an old house and is about 80 to 90 years old.They have 2 dogs and 2 cats. 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 She is a non-smoker as previously mentioned. She denies any allergies to the animals. She does have seasonal allergies. She uses Flonase for sinus issues and seasonal allergies. She had a chest x-ray that was essentially unremarkable. She did have a CT chest without contrast that demonstrated very dilated esophagus but otherwise normal parenchyma. She has been afebrile admission.She is currently on methylprednisone 40 mg IV 3 times daily. She is also on doxycycline. Blood cultures have been drawn. She does have an elevated leukocytosis of 13,500. She is also anemic with a hemoglobin of 9.5Her most recent blood gas demonstrates pH 7.3, PCO2 of 47 and a PO2 of 82 and 3 L nasal cannula. She denies any history of sleep apnea. Allergies Allergy/AdvReac Type Severity Reaction Status Date / Time No Known Allergies Allergy Verified 04/21/19 03:58 Home Medications Home Medications Medication Instructions Recorded Confirmed Type brexpiprazole [Rexulti] 1 mg PO DAILY 04/21/19 04/21/19 History carbidopa-levodopa 1 tab PO DIRECTED 04/21/19 04/21/19 History gabapentin 300 mg PO TID PRN 04/21/19 04/21/19 History lorazepam [Ativan] 1 mg PO DAILY PRN 04/21/19 04/21/19 History oxycodone-acetaminophen [Percocet] 1 tab PO TID PRN 04/21/19 04/21/19 History trandolapril-verapamil [Tarka] 1 tab PO DAILY 04/21/19 04/21/19 History Patient History Medical History Asthma Fibromyalgia Hypertension Surgical History H/O tubal ligation History of cholecystectomy Social History Preferred Language: Albanian Communication Ability: Effective Segregator Required: No Beliefs That Will Affect Care: None Current Living Situation: Spouse Other Information That Helps Us Care for You: No Feels Safe at Home: Yes Safety Concerns: Feels Safe At This Time Smoking Status: Never smoker Do You Dip or Chew Tobacco: No ; Second Hand Exposure: No ; Tobacco Cessation Education Requested by Patient: No Hx Alcohol Use: No Hx Substance Use: No Review of Systems Review of Systems: All systems reviewed & are unremarkable except as noted in HPI & below Physical Exam Constitutional: Nontoxic-appearing. Overweight. Wearing nasal cannula. Sitting in bed watching TV. Eyes: PERRL, conjunctivae normal, anicteric sclerae ENMT: external ear and nose normal, oropharynx normal Mallampati Class: IV Neck: trachea midline, no thyromegaly normal visual inspection Respiratory: normal respiratory effort, lungs clear to auscultation Cardiovascular: RRR, no murmur, no edema Gastrointestinal (Abdomen): normal bowel sounds, soft, nontender, no hepatosplenomegaly Musculoskeletal: no cyanosis or clubbing, extremities motor strength 5/5 Neurologic: PERRL, EOMI, accommodation nl, no face palsy, no dysarthria She has a pill-rolling tremor noted. Psychiatric: A+Ox3, euthymic affect Results & Data Vital Signs (Past 12 Hours) Vital Signs Temp Pulse Pulse Resp BP BP Pulse Ox 04/21/19 11:43 98.1 F 108 H 20 135/50 L 98 04/21/19 11:25 109 H 18 97 04/21/19 11:04 04/21/19 09:37 118 H 136/69 98 04/21/19 08:50 138 H 30 H 97 04/21/19 08:23 119 H 18 97 04/21/19 08:00 113 H 04/21/19 07:46 97.7 F 117 H 20 131/79 90 04/21/19 06:32 114 H 22 105/91 90 04/21/19 06:00 107 H 17 139/78 100 04/21/19 05:31 103 H 24 144/71 H 98 04/21/19 05:01 95 H 18 141/83 H 100 04/21/19 04:57 99 H 19 94 04/21/19 04:32 93 H 18 114/50 L 92 04/21/19 04:09 98 H 26 H 110/96 92 04/21/19 04:07 98 H 18 110/96 93 04/21/19 03:55 97 H 21 92 04/21/19 03:30 94 04/21/19 03:27 85 L 04/21/19 03:18 98.1 F 121 H 20 102/59 L 88 L Pulse Ox 04/21/19 11:43 04/21/19 11:25 04/21/19 11:04 96 04/21/19 09:37 04/21/19 08:50 04/21/19 08:23 04/21/19 08:00 04/21/19 07:46 04/21/19 06:32 04/21/19 06:00 04/21/19 05:31 04/21/19 05:01 04/21/19 04:57 04/21/19 04:32 04/21/19 04:09 04/21/19 04:07 04/21/19 03:55 04/21/19 03:30 04/21/19 03:27 04/21/19 03:18 I personally reviewed the patient's pertinent labs and imaging. PG Care Time/CCT Total # of Minutes Spent Total Time Spent with Patient: Total time spent is greater than 50% in coordination of care (as documented) at patient's floor/unit and/or counseling patient:
--- NOTE | 2019-04-21 17:28 | Nuclear Medicine Report ---
NUCLEAR MEDICINE VENTILATION/PERFUSION SCAN CLINICAL HISTORY: Worsening shortness of breath. Probable PE. COMPARISON: Chest radiograph and chest CT performed earlier today. TECHNIQUE: For the ventilation portion of this exam, 31.8 mCi of DTPA was inhaled at 4:45 PM on 2018. Immediately following inhalation, imaging of the chest was carried out in the anterior , posterior, left lateral, right lateral, LPO, RPO, HEBREW and ULLOA projections. For the perfusion porti on of exam, 6.3 mCi of technetium 99m MAA was injected IV at 5:00 PM on April 21, 2019. Immediately following injection, imaging of the chest was carried out in the same projections. FINDINGS: Ingested radiotracer is noted on the ventilation images. No perfusion defects are identifi ed. Expected radiotracer distribution on the perfusion images is noted. Ventilation images are hetero geneous. IMPRESSION: Low probability for pulmonary embolus. Electronically signed by: Benito Basilio M.D. 04/21/2019 5:27 PM
[2019-04-21] MEDS: OXYCODONE/ACETAMINOPHEN 10-325 TAB PO PRN (18:00)
[2019-04-21] MEDS ORDERED: methylPREDNISolone 40 MG in SYRINGE 0 ML IV SCH (20:00)
[2019-04-21] MEDS ORDERED: DOXYCYCLINE HYCLATE 100 MG CAP PO SCH (21:00)
[2019-04-21] MEDS: PANTOprazole 40 MG TAB PO SCH (21:04)
[2019-04-21] MEDS ORDERED: LORazepam 0.5 MG TAB PO STA (21:57)
[2019-04-22 02:29] LABS: Appearance Urine Clear (Clear); Bacteria Urine Automated Negative (Negative); Bilirubin Urine Negative (Negative); Blood Urine Negative (Negative); Color Urine Yellow; Epithelial Cell Urine Auto >30 /lpf (0-5); Glucose Urine UA 1+ (Negative); Ketones Urine Negative (Negative); Leukocyte Esterase Urine Negative (Negative); Nitrite Urine Negative (Negative); Protein Urine Trace (Negative); RBC Urine Automated 0-4 /hpf (0-4); Specific Gravity Urine 1.019 (1.000-1.030); Urobilinogen Urine Negative (Negative); pH Urine 5.5 (4.5-7.5)
[2019-04-22] MEDS: LEVALBUTEROL 1.25MG/0.5ML NEB INH SCH ×4 (02:57→16:13)
[2019-04-22] MEDS: IPRATROPIUM BROMIDE NEB SOLN 0.02% 2.5 ML VIAL INH SCH ×4 (02:59→16:13)
[2019-04-22] MEDS: OXYCODONE/ACETAMINOPHEN 10-325 TAB PO PRN (05:37)
[2019-04-22] MEDS: HEPARIN SOD 5,000 UNIT/0.5 ML VIAL SQ SCH ×2 (05:38→13:10)
[2019-04-22] MEDS: PANTOprazole 40 MG TAB PO SCH (07:58)
[2019-04-22] MEDS: guaiFENesin 600 MG TABCR PO SCH (07:59)
[2019-04-22] MEDS: CARBIDOPA/LEVODOPA 25/100MG TAB PO SCH ×2 (07:59→13:09)
[2019-04-22] MEDS ORDERED: INSULIN GLARGINE SOLOSTAR 100 UNITS/ML 3 ML PEN SQ SCH (09:00)
[2019-04-22] MEDS ORDERED: predniSONE 20 MG TAB PO SCH (09:00)
[2019-04-22] MEDS: INSULIN ASPART 100 UNITS/ML 3 ML PEN SC SCH ×3 (09:12→17:11)
[2019-04-22] MEDS: VERAPAMIL HCL 240 MG TABCR PO SCH (09:14)
[2019-04-22] MEDS ORDERED: LORazepam 0.5 MG TAB PO PRN (09:29)
[2019-04-22 09:53] LABS: Hematocrit (blood only) 32.5 % (37-47); Hemoglobin 9.9 g/dL (12.0-16.0); Mean Corpuscular Hemoglobin 26.4 pg (25-34); Mean Corpuscular Hgb Conc 30.5 g/dL (32-36); Mean Corpuscular Volume 86.7 fL (80-100); Mean Platelet Volume 11.7 fL (7.4-10.4); Platelet Count 294 K/uL (130-400); RDW Coefficient of Variation 18.3 % (11.5-14.5); RDW Standard Deviation 58.4 fL (36.4-46.3); Red Blood Count 3.75 M/uL (4.2-5.4); White Blood Count 18.44 K/uL (4.8-10.8)
[2019-04-22 10:11] LABS: BUN Creatinine Ratio 16.4 (10-20); Calcium 8.8 mg/dl (8.5-10.1); Creatinine Clr Calc Pharmacy 42.4 ml/min; Est GFR (African American) 46.4; Potassium 4.6 mmol/L (3.5-5.1)
--- NOTE | 2019-04-22 11:42 | Pulmonology Progress Note ---
Date of Service April 22, 2019 Assessment & Plan (1) Acute hypoxemic respiratory failure: Patient seems to be responding nicely to steroids. Recommend a 7-day course of 40 mg of prednisone. I still feel that she should follow-up with an outpatient GI physician given her dilated esophagus and esophageal issues. She is at risk for further aspiration. Recommend continuing Protonix twice daily. VQ scan was low probability for possible pulmonary embolism. She does need an outpatient pulmonary function test which she can follow-up with in [place]. Additionally, weight loss is advised. Pulmonary will sign off. Thank you for the consult. (2) Chest tightness: (3) Esophageal dilatation: (4) Active asthma: (5) Gastric reflux: (6) Acute hypercapnic respiratory failure: Subjective Patient is feeling much improved today. She is saturating 96% on room air. She is ambulating around the hallways. She denies any chest tightness or chest pain. No nausea or vomiting. No significant swelling in her legs. Review of Systems Review of Systems: Unremarkable unless noted elsewhere Physical Exam Eyes: PERRL, conjunctivae normal, anicteric sclerae ENMT: external ear and nose normal, oropharynx normal Mallampati Class: IV Neck: trachea midline, no thyromegaly normal visual inspection Respiratory: normal respiratory effort, lungs clear to auscultation Cardiovascular: RRR, no murmur, no edema Gastrointestinal (Abdomen): normal bowel sounds, soft, nontender, no hepatosplenomegaly Musculoskeletal: no cyanosis or clubbing, extremities motor strength 5/5 Neurologic: PERRL, EOMI, accommodation nl, no face palsy, no dysarthria Psychiatric: A+Ox3, euthymic affect Results & Data Vital Signs (Past 12 Hours) Vital Signs Temp Pulse Pulse Resp BP Pulse Ox 04/22/19 11:33 97.9 F 118 H 20 143/65 H 96 04/22/19 11:18 119 H 18 94 04/22/19 08:20 116 H 04/22/19 07:58 97.7 F 113 H 16 130/66 92 04/22/19 07:01 105 H 18 95 04/22/19 03:56 101 H 04/22/19 03:50 98.2 F 108 H 18 100/52 L 91 04/22/19 02:59 100 H 18 90 PG Care Time/CCT Total # of Minutes Spent Total Time Spent with Patient: Total time spent is greater than 50% in coordination of care (as documented) at patient's floor/unit and/or counseling patient:
--- NOTE | 2019-04-22 11:47 | Gastrointestinal Consultation ---
Date of Consultation April 22, 2019 Assessment & Plan (1) GERD (gastroesophageal reflux disease): (2) Esophageal dilatation: Pt is a 63 y/o female admitted currently w acute respiratory failure secondary to asthma exacerbation. During her workup, chest imaing studies showed signs of distal esophagus dilation that is air/fluid filled suspected to be related to hiatal hernia vs esophageal narrowing or dysmotility. She is from [facility] and has a local brand designer who previously had done her endoscopic evals. She would like to go home in 3 day's time. I think it's best given her current respiratory status and also for continuity of care purposes that she gets repeat EGD for eval by her local brand designer. Main GI symptoms she's having is uncontrolled reflux/heartburn in last few days. I will continue her Protonix 40mg BID and add Famotidine 20mg daily. Will obtain UGI series today. Otherwise no plans for endoscopic evaluations. Recommend f/u w her local brand designer when back at home. History of Present Illness Reason for Consultation: Eval for possible EGD Requesting Physician: Dr. Trung Harvey Attending Physician: Dr. Lucas Armas History of Present Illness Pt is a 63 y/o female w PMHx of ashtma, HTN, Parkinson's, GERD, fibromyalgia, anxiety who is currently admitted for acute hypoxemic respiratory failure secondary to asthma exacerbation. She is visiting daughter in [place]. She lives in [facility] and plans to return to home in 3 days' time. GI is consulted as her chest imaging studies (CXR, chest CT) showed signs of air/fluid filled esophagus w distal distension, hiatal hernia ? related to reflux vs esophageal dysmotility or narrowing. Pt currently taking Omeprazole ? 40mg TID per her report at home. In last 2 days she does feel increased acid reflux and heartburn symptoms. Denies n/v, abd pain, dysphagia, odynophagia or bowel habit changes. She has a local brand designer who had previously done her EGD and colonoscopies back in [facility]. She cannot recall his name. She admitted to having hiatal hernia but said was told no intervention/repair needed. Allergies Allergy/AdvReac Type Severity Reaction Status Date / Time No Known Allergies Allergy Verified 04/21/19 03:58 Home Medications Home Medications Medication Instructions Recorded Confirmed Type brexpiprazole [Rexulti] 1 mg PO DAILY 10/24/19 10/24/19 History carbidopa-levodopa 1 tab PO DIRECTED 04/21/19 04/21/19 History gabapentin 300 mg PO TID PRN 04/21/19 04/21/19 History lorazepam [Ativan] 1 mg PO DAILY PRN 04/21/19 04/21/19 History oxycodone-acetaminophen [Percocet] 1 tab PO TID PRN 04/21/19 04/21/19 History trandolapril-verapamil [Tarka] 1 tab PO DAILY 04/21/19 04/21/19 History Patient History Medical History Asthma Fibromyalgia Hypertension Surgical History H/O tubal ligation History of cholecystectomy Social History Preferred Language: Comoran Communication Ability: Effective Cripple Cutter Required: No Beliefs That Will Affect Care: None Current Living Situation: Spouse Other Information That Helps Us Care for You: No Feels Safe at Home: Yes Safety Concerns: Feels Safe At This Time Smoking Status: Never smoker Do You Dip or Chew Tobacco: No ; Second Hand Exposure: No ; Tobacco Cessation Education Requested by Patient: No Hx Alcohol Use: No Hx Substance Use: No Review of Systems Review of Systems: All systems reviewed & are unremarkable except as noted in HPI & below Physical Exam Constitutional: WD/WN, vitals as above well groomed, cooperative and comfortable Eyes: PERRL, conjunctivae normal, anicteric sclerae ENMT: external ear and nose normal, oropharynx normal Respiratory: no respiratory distress and does not use accessory muscles Auscultation: + diminished lung sounds and + wheezes (expiratory) Cardiovascular: RRR, no murmur, no edema Gastrointestinal (Abdomen): normal bowel sounds, soft, nontender, no hepatosplenomegaly Skin: no rashes, warm and dry no jaundice Neurologic: resting tremors Psychiatric: A+Ox3, euthymic affect Lymphatic: no lymphedema Results & Data Vital Signs (Past 12 Hours) Vital Signs Temp Pulse Pulse Resp BP Pulse Ox 04/22/19 11:33 36.6 C 118 H 20 143/65 H 96 04/22/19 11:18 119 H 18 94 04/22/19 08:20 116 H 04/22/19 07:58 36.5 C 113 H 16 130/66 92 04/22/19 07:01 105 H 18 95 04/22/19 03:56 101 H 04/22/19 03:50 36.8 C 108 H 18 100/52 L 91 04/22/19 02:59 100 H 18 90
[2019-04-22] MEDS ORDERED: FAMOTIDINE 20 MG TAB PO SCH (12:00)
--- NOTE | 2019-04-22 13:59 | Fluoroscopy Report ---
FL upper GI with air RTN CLINICAL HISTORY: eval for GERD, dysmotility, hernia COMPARISON STUDY: Chest CT April 21, 2019. FLUOROSCOPY TIME: 1.6 minutes. FLUOROSCOPIC IMAGES: 23 FINDINGS: There is mild esophageal dysmotility. A small hiatal hernia is noted. Moderate gastroesopha geal reflux was elicited. No esophageal mass or stricture was identified. Gastric for pattern is norm al. There are cholecystectomy clips. Ligament of Treitz is normal position. Caliber of the opacified jejunum is normal. IMPRESSION: 1. Small hiatal hernia with moderate gastroesophageal reflux. 2. Mild esophageal dysmotility. 3. No esophageal mass or stricture identified. Electronically signed by: Benito Basilio M.D. 04/22/2019 1:58 PM
--- NOTE | 2019-04-22 16:23 | Hospitalist Progress Note ---
Date of Service April 22, 2019 Assessment & Plan (1) Acute hypercapnic respiratory failure: (2) Hypoxia: (3) Active asthma: Secondary to severe persistent asthma exacerbation secondary to complicated bronchitis CXR showed linear density at the left lung base suggestive of subsegmental a telectasis. CT chest showed Mild emphysematous change. No focal infiltrative process. ABG this morning 7.30/47/82/22 Continue IV Solumedrol 40mg IV q8h, neb treatment and oxygen supplement Received IV Rocephin and Doxycycline in the ER Not on any Asthma maintenance med Unable to get a CT with PE protocol due to elevated creatinine Doppler U/S of the b/l LE extremities showed no evidence of PE V/Q scan showed Low probability for pulmonary embolus. Pulm on board Abx discontinued since imaging showed no infiltrate to suggest pneumonia Will change IV steroid to Prednisone 40mg Continue Neb treatment Clinically improves significantly Very anxious to go home today Will need to follow with pulmonology to get outpatient pulmonary function test in [place] GERD Seems to cause asthma symptoms worst CT showed showed air and fluid-filled filled mild esophageal distention associated with hiatal hernia. This appearance is suggestive of gastroesophageal reflux. Upper GI series showed s hiatal hernia with moderate gastroesophageal reflux. Mild esophageal dysmotility. GI on board recommended to continue PPI 40mg BID and add Famotidine 20mg daily. GI will defer EGD to his Gastro in [place] since pt is returning to [place] in 3 days CKD stabe 3 Creatinine on admission 1.6 (unknown baseline) Creatinine improves to 1.3 today Will avoid nephrotoxic agents Monitor BMP Newly Diagnosed DM Hba1c 6.6 BS has been elevated due to steroid on lantus and novolog sliding scale clinical unit educator consult Advised on lifestyle modification and weight loss Repeat Hba1c in 3-6 months Continue monitor BS Elevated WBC Due to steroid NO sign of pneumonia on CXR and CT scan Lactate wnl Blood cx negative Anxiety Continue home dose Ativan PRN HTN BP stable Continue home BP med CODE STATUS FULL CODE Disposition Will discharge home today Follow up with PCP in 1 week Follow up with pulmonology Follow up with gastroenterology Subjective Pt was seen and examined Sitting in bed with no distress Pt said that she is feeling well She is saturated well on RA She is very anxious to go home because she is here to visit her daughter Denies any chest pain, palpitation, dizziness and SOB Physical Exam Physical Exam: General- No acute distress Head- atraumatic Eyes- PERRL, EOMI, ENT- oropharynx clear Neck- supple, no JVD Lungs- No wheezing Heart- +tachycardia; no murmur Abdomen- normal bowel sounds, soft, nontender Extremities- no calf tenderness Neuro- alert, oriented x 3; PERRL, EOMI; no facial palsy; no dysarthria Skin- warm & dry Results & Data Vital Signs (Past 12 Hours) Vital Signs Temp Pulse Pulse Resp BP Pulse Ox 04/22/19 15:57 36.7 C 100 H 20 119/48 L 91 04/22/19 11:33 36.6 C 118 H 20 143/65 H 96 04/22/19 11:18 119 H 18 94 04/22/19 08:20 116 H 04/22/19 07:58 36.5 C 113 H 16 130/66 92 04/22/19 07:01 105 H 18 95
--- NOTE | 2019-04-23 23:18 | Discharge Summary ---
Date of Service April 22, 2019 Admission HPI Per Admitting Provider History obtained from patient and records. Medical history significant for bronchial asthma, hypertension, Parkinson's disease, GERD, fibromyalgia, anxiety disorder. Patient is a resident of [place], [place] who has been in town the last 2 days to visit her daughter who lives in [place], [place]. Patient has had bronchial asthma since she was in her teens. Daily inhaler/nebulizer use for some time now. Asthma attacks precipitated by change in weather as per patient. No known exposure to secondhand smoke. History of intubation for asthma/pneumonia about 2 years ago at a hospital in [place]. Yesterday, patient noted worsening reflux symptoms followed by colds , congestion, sore throat, cough symptoms productive of junky sputum. Worsening shortness of breath and wheezing as per patient. No chest pain. No aspiration. No fever, no chills. At the ER, patient noted to be hypoxemic, Patient given IV Solu-Medrol, neb treatment, Ceftriaxone and Doxycycline for asthmatic bronchitis. Medical History as above Surgical History : BTL, cholecystectomy Family History : Asthma, Parkinson's disease Personal/Social history : Non-smoker, no EtOH intake, retired store employee Admission Exam Per Admitting Provider GENERAL: Wane, obese, flat affect, currently having a breathing treatment comfortable SKIN: Pallor , warm HEENT: Pale palpebral conjunctivae, no ptosis, dry buccal mucosa: O2 mask in place NECK : Supple, short neck, no tenderness CHEST : Decreased breath sounds, bilateral expiratory wheezes, no tenderness HEART : Tachycardic , no obvious murmurs ABDOMEN: Some distention, nontender RECTAL : Intact sphincter, yellow stool (FOBT negative) EXTREMITIES : Minimal LE swelling, no LE tenderness, no other conspicuous deformities noted NEUROLOGIC : Coherent, no facial asymmetry, tremulous (from breathing treatment as per patient), no other gross focality Principal Diagnosis Acute hypercapnic respiratory failure Hypoxia Active asthma GERD Anxiety Newly Diagnosed Diabetes Hypertension Discharge Exam General- No acute distress Head- atraumatic Eyes- PERRL, EOMI, ENT- oropharynx clear Neck- supple, no JVD Lungs- No wheezing Heart- +tachycardia; no murmur Abdomen- normal bowel sounds, soft, nontender Extremities- no calf tenderness Neuro- alert, oriented x 3; PERRL, EOMI; no facial palsy; no dysarthria Skin- warm & dry Discharge Data Allergies Allergy/AdvReac Type Severity Reaction Status Date / Time No Known Allergies Allergy Verified 04/21/19 03:58 Consultations 04/21/19 04:55 ED Decision to Admit Stat 04/21/19 07:16 Consult Pulmonology Routine 04/21/19 15:25 Consult Gastroenterology Routine Ordered Studies 04/21/19 09:29 CT chest wo con Routine 04/22/19 13:30 FL upper GI with air RTN Routine FL upper GI with air RTN CLINICAL HISTORY: eval for GERD, dysmotility, hernia COMPARISON STUDY: Chest CT April 21, 2019. FLUOROSCOPY TIME: 1.6 minutes. FLUOROSCOPIC IMAGES: 23 FINDINGS: There is mild esophageal dysmotility. A small hiatal hernia is noted. Moderate gastroesophageal reflux was elicited. No esophageal mass or stricture was identified. Gastric for pattern is normal. There are cholecystectomy clips. Ligament of Treitz is normal position. Caliber of the opacified jejunum is normal. IMPRESSION: 1. Small hiatal hernia with moderate gastroesophageal reflux. 2. Mild esophageal dysmotility. 3. No esophageal mass or stricture identified. Electronically signed by: Benito Basilio M.D. 04/22/2019 1:58 PM Dictated: 04/22/19 1350 Transcribed: 04/22/19 135 NUCLEAR MEDICINE VENTILATION/PERFUSION SCAN CLINICAL HISTORY: Worsening shortness of breath. Probable PE. COMPARISON: Chest radiograph and chest CT performed earlier today. TECHNIQUE: For the ventilation portion of this exam, 31.8 mCi of DTPA was inhaled at 4:45 PM on April 21, 2019. Immediately following inhalation, imaging of the chest was carried out in the anterior, posterior, left lateral, right lateral, LPO, RPO, WELSH and ULLOA projections. For the perfusion portion of exam, 6.3 mCi of technetium 99m MAA was injected IV at 5:00 PM on April 21, 2019. Immediately following injection, imaging of the chest was carried out in the same projections. FINDINGS: Ingested radiotracer is noted on the ventilation images. No perfusion defects are identified. Expected radiotracer distribution on the perfusion images is noted. Ventilation images are heterogeneous. IMPRESSION: Low probability for pulmonary embolus. Electronically signed by: Benito Basilio M.D. 04/21/2019 5:27 PM Dictated: 04/21/19 1722 Transcribed: 10/24/[address] chest wo con CT DOSE: 570.67 mGy.cm HISTORY: Dyspnea worsening SOB TECHNIQUE: Multiaxial CT images of the chest were performed without contrast. A dose lowering technique was utilized adhering to the principles of ALARA. COMPARISON: None. FINDINGS: Lungs are considered clear. There are findings of minimal scattered bibasilar atelectatic change. Mild emphysematous change is present. There are no focal infiltrative changes. There is no significant nodular pathology. There is no significant hilar or mediastinal adenopathy. There is moderate air-filled as well as fluid-filled esophageal dilatation. This is associated with a small hiatal hernia and potentially is secondary to reflux. Diffuse fatty replacement of liver. Small amount of air within the biliary delmis mathew system presumably postoperative and/or related to prior sphincterotomy or cholecystectomy although that information is not provided. IMPRESSION: 1. Mild emphysematous change. 2. No focal infiltrative process. 3. Fatty replacement of the liver with air within the biliary ductal system presumably on a postoperative basis. 4. Air and fluid-filled filled mild esophageal distention associated with hiatal hernia. 5. This appearance is suggestive of gastroesophageal reflux. The above report was generated using voice recognition software. It may contain grammatical, syntax or spelling errors. Electronically signed by: Allen Ruby M.D. 04/21/2019 10:02 AM Dictated: 04/21/19955 Transcribed: 04/21/19955 XR chest 2V PA/lateral HISTORY: cough COMPARISON: None. FINDINGS: Small linear density at the left lung base favor scarring or subsegmental atelectasis. Otherwise, the lungs are clear. The heart is normal in size. No pleural effusions. No pneumothorax. Small hiatus hernia with a mildly distended esophagus and a column of fluid within the distal esophagus. Mild anterior wedging within the mid thoracic spine vertebral body is likely old. Postoperative changes within the proximal left humerus. IMPRESSION: 1. Small hiatus hernia with a mildly distended esophagus and a column of fluid within the distal esophagus. This could be due to esophageal dysmotility, gas troesophageal reflux disease, or possibly stricture/narrowing of the distal esophagus. Endoscopy and/or upper GI series is recommended for further evaluation. 2. Linear density at the left lung base suggestive of subsegmental atelectasis. Electronically signed by: Felipe Owen M.D. 04/21/2019 7:30 AM Dictated: 04/21/19727 Transcribed: 04/21/19727 Hospital Course (1) Acute hypercapnic respiratory failure: (2) Hypoxia: (3) Active asthma: Secondary to severe persistent asthma exacerbation secondary to complic ated bronchitis CXR showed linear density at the left lung base suggestive of subsegmental atelectasis. CT chest showed Mild emphysematous change. No focal infiltrative process. ABG this morning 7.30///22 Continue IV Solumedrol 40mg IV q8h, neb treatment and oxygen supplement Received IV Rocephin and Doxycycline in the ER Not on any Asthma maintenance med Unable to get a CT with PE protocol due to elevated creatinine Doppler U/S of the b/l LE extremities showed no evidence of PE V/Q scan showed Low probability for pulmonary embolus. Pulm on board Abx discontinued since imaging showed no infiltrate to suggest pneumonia Will change IV steroid to Prednisone 40mg Continue Neb treatment Clinically improves significantly Very anxious to go home today Will need to follow with pulmonology to get outpatient pulmonary function test in [place] GERD Seems to cause asthma symptoms worst CT showed showed air and fluid-filled filled mild esophageal distention associated with hiatal hernia. This appearance is suggestive of gastroesophageal reflux. Upper GI series showed s hiatal hernia with moderate gastroesophageal reflux. Mild esophageal dysmotility. GI on board recommended to continue PPI 40mg BID and add Famotidine 20mg daily. GI will defer EGD to his Gastro in [place] since pt is returning to [place] in 3 days CKD stabe 3 Creatinine on admission 1.6 (unknown baseline) Creatinine improves to 1.3 today Will avoid nephrotoxic agents Monitor BMP Newly Diagnosed DM Hba1c 6.6 BS has been elevated due to steroid on lantus and novolog sliding scale chemical educator consult Advised on lifestyle modification and weight loss Repeat Hba1c in 3-6 months Continue monitor BS Elevated WBC Due to steroid NO sign of pneumonia on CXR and CT scan Lactate wnl Blood cx negative Anxiety Continue home dose Ativan PRN HTN BP stable Continue home BP med CODE STATUS FULL CODE Disposition Will discharge home today Follow up with PCP in 1 week Follow up with pulmonology Follow up with gastroenterology Total Time Total Time Spent Total Time Spent (In Minutes): 35 minutes Total Time Includes: Examination of the Patient, Discharge Planning, Medication Reconciliation, Communication With Other Providers and Other Discharge Plan Discharge Items Patient Disposition: Home - Self-Care Reason For Visit: RESPIRATORY FAILURE Discharge Diagnosis: Acute hypercapnic respiratory failure Hypoxia Active asthma GERD Anxiety Newly Diagnosed Diabetes Hypertension Activity: Resume your previous activity Activity Comment: As tolerated Non-emergency contact: Primary Care Provider, Education Research Analyst and Sql Analyst Call non-emergency contact if: you have any medication questions Follow-up/Referrals: Darian Vega [Other] Diet: Heart Healthy Addtl Attending Provider Instructions: Follow up with your primary care provider in 1 week Follow up with pulmonology (You will need outpatient pulmonary function test) Follow up with gastroenterology to evaluate for endoscopy Follow up a low calory diet and limited sweet intake Exercise and weight loss Check Hba1c in 3-6 months Pending Studies at Discharge: No Stand-Alone Forms: My Foto[employer], Smoking Cessation Medications and DC Order Prescriptions: New prednisone 20 mg Tablet 40 mg PO DAILY 6 Days Qty: 12 RF: 0 famotidine 20 mg Tablet 20 mg PO QAM 30 Days Qty: 30 RF: 0 pantoprazole 40 mg Tablet,Delayed Release (Dr/Ec) 40 mg PO BID 30 Days Qty: 60 RF: 0 ipratropium bromide 0.02 % Solution 0.5 mg inhalation Q6H PRN (Reason: SOB/Wheezing) 30 Days Qty: 75 RF: 0 levalbuterol HCl [Xopenex] 0.63 mg/3 mL solution for nebulization 0.63 mg INH Q6H PRN (Reason: shortness of breath or wheezing) Qty: 90 RF: 0 Continued oxycodone-acetaminophen [Percocet] 10-325 mg Tablet 1 tab PO TID PRN (Reason: Pain) RF: 0 gabapentin 300 mg Capsule 300 mg PO TID PRN (Reason: Pain) RF: 0 lorazepam [Ativan] 1 mg Tablet 1 mg PO DAILY PRN (Reason: Anxiety) RF: 0 Rexulti 1 mg Tablet 1 mg PO DAILY RF: 0 carbidopa-levodopa 25-100 mg Tablet 1 tab PO DIRECTED RF: 0 trandolapril-verapamil [Tarka] 2-240 mg Tablet, Ir - Er, Biphasic 24hr 1 tab PO DAILY RF: 0 Discharge Orders: Discharge Order (Routine); Ordered 04/22/19 Ordered By: Trung Harvey Admission Data Admit Date/Time: 04/21/19 06:21 Attending Provider: Trung Harvey Admit Provider: Siva Jones Other Providers: Siva Jones ; Ariel Doss ; Lucas Armas Other Interventions: Discharge Summary Assessment (RN) Last Done: 04/22/19 17:30 DC Date/Time DO NOT enter until pt leaves facility: 04/22/19 19:36
--- NOTE | 2019-04-26 08:12 | Coding Query ---
To promote full compliance with coding requirements relating to patient care, provider participation is requested in all cases of moisture conditioner operator uncertainty. Please assist us with the question(s) below: Coding Question(s): The diagnosis below was documented in the H&P, then subsequently fell off all further documentation. Please indicate if it is still a possible diagnosis or ruled out. Physician's Response(s): POSSIBLE SEPSIS ( ) Diagnosed and POA ( ) Diagnosed and not POA ( x ) Ruled out ( ) Other (please specify) MTDD
== END 2019-04-22 19:36 | disposition home or self-care (01) | DRG 189 ==
LOC: ED 03:13 → 2N 06:21